=== PATIENT | female | born 1960 ===

== ENCOUNTER 2018-06-19 16:13 | Inpatient (IN) ==
[2018-06-20] MEDS ORDERED: diphenhydrAMINE CAP 25 MG CAPSULE PO PRN (02:20)
[2018-06-20] MEDS ORDERED: ONDANSETRON 4 MG/2 ML VIAL IV PRN (02:20)
[2018-06-20] MEDS ORDERED: NICOTINE 21 MG/24 HR PATCH TRANSDERM PRN (02:20)
[2018-06-20] MEDS ORDERED: BISACODYL 5 MG TABLET PO PRN (02:20)
[2018-06-20] MEDS ORDERED: ACETAMINOPHEN 325 MG TABLET PO PRN (02:20)
[2018-06-20] MEDS ORDERED: MORPHINE 4 MG/1 ML VIAL IV PRN (02:20)
[2018-06-20] MEDS ORDERED: hydrALAZINE 10 MG TABLET PO PRN (02:21)
[2018-06-20] MEDS ORDERED: ALBUTEROL 1.25 MG/3 ML NEB RESP TX PRN (02:21)
[2018-06-20 02:45] LABS: Basophils % 0.4 % (0.0-0.8); Eosinophils # 0.2 10*3/uL (0.0-0.87); Hematocrit 22.9 VOL% (35.7-47.0); Hemoglobin 7.7 GM/DL (12.0-16.0); Immature Granulocytes % 0.4 %; Immature Granulocytes Absolute 0.03 #; Lymphocytes # 2.5 10*3/uL (1.4-4.0); Lymphocytes % 37.5 % (21.3-54.2); Mean Corpuscular HGB Conc 33.6 GM/DL (32-36); Mean Corpuscular Hemoglobin 36 PG (27-34); Mean Corpuscular Volume 105.5 FL (87-102); Mean Platelet Volume 9.5 FL (9.6-12.0); Monocytes # 0.5 10*3/uL (0.11-0.8); Monocytes % 8.1 % (1.7-12.7); Neutrophils # 3.4 10*3/uL (1.4-7.4); Neutrophils % 50.6 % (38.7-73.9); Platelet Count 146 T/CUMM (130-400); Red Blood Count 2.17 MC/CUMM (3.8-5.5); Red Cell Distribution Width 15.3 % (9.3-17.3); White Blood Count 6.7 T/CUMM (4-12)
[2018-06-20 02:50] LABS: ABG Base Excess -4.4 MMOL/L (-2.5-2.5); ABG HCO3 20.8 MMOL/L (20-26); ABG Oxygen Saturation 96.8 % (95-100); ABG PCO2 31.2 MM HG (35-48); ABG PH 7.406 (7.35-7.45); ABG PO2 83.5 MM HG (80-95); ABG TCO2 18.2 MMOL/L (23-27); Allen Test Positive
[2018-06-20] MEDS: ALBUTEROL/IPRATROPIUM 3 ML NEB RESP TX SCH ×5 (02:57→20:01)
[2018-06-20] MEDS ORDERED: ALBUTEROL/IPRATROPIUM 3 ML NEB RESP TX SCH (03:00)
[2018-06-20] MEDS: cefTRIAXone 1,000 MG in SYRINGE 1 EACH IV SCH (03:27)
[2018-06-20] MEDS: AZITHROMYCIN INJ 500 MG in SODIUM CHLORIDE 0.9% 250 ML IV SCH (03:31)
[2018-06-20] MEDS: methylPREDNISolone SOD SUC 125 MG/2 ML VIAL IV SCH ×3 (03:35→22:40)
[2018-06-20 03:36] LABS: Calcium 8.1 MG/DL (8.5-10.1)
[2018-06-20] MEDS: BUDESONIDE 0.5 MG/2 ML NEB RESP TX SCH ×2 (08:07→20:01)
[2018-06-20] MEDS: ARFORMOTEROL 15 MCG/2 ML NEB RESP TX SCH ×2 (08:07→20:01)
[2018-06-20] MEDS: PANTOPRAZOLE 40 MG TABLET PO SCH (11:06)
[2018-06-20] MEDS: SODIUM CHLORIDE 0.9% 1,000 ML IV SCH (16:04)
[2018-06-20 19:52] LABS: Apearance,Urine Slightly Hazy (Clear); Bacteria,Urine Occasional /HPF (Few); Bilirubin,Urine Negative (Negative); Blood, Urine Small mg/dL (Negative); Glucose,Urine (UA) Negative (Negative); Ketones,Urine Negative (Negative); Nitrite,Urine Positive (Negative); Protein,Urine Negative; RBC,Urine 3 /HPF (0-4); Squamous Epithelial Cell,Urine Occasional /HPF (0-10); Urine Color Yellow (Yellow); Urine Specific Gravity 1.011 (1.001-1.035); Urine Urobilinogen < 2.0 EU/DL (0.2-1.0); WBC,Urine 11 /HPF (0-6)
[2018-06-20 20:10] LABS: Microalbum Ur Quant Random 10.6 MG/L (0-20)
[2018-06-21] MEDS: ALBUTEROL/IPRATROPIUM 3 ML NEB RESP TX SCH ×7 (00:30→23:40)
[2018-06-21] MEDS: methylPREDNISolone SOD SUC 125 MG/2 ML VIAL IV SCH (03:33)
[2018-06-21] MEDS: cefTRIAXone 1,000 MG in SYRINGE 1 EACH IV SCH (03:34)
[2018-06-21] MEDS: AZITHROMYCIN INJ 500 MG in SODIUM CHLORIDE 0.9% 250 ML IV SCH (03:38)
[2018-06-21 05:47] LABS: Basophils % 0.1 % (0.0-0.8); Hematocrit 23.3 VOL% (35.7-47.0); Hemoglobin 7.8 GM/DL (12.0-16.0); Immature Granulocytes % 1.5 %; Immature Granulocytes Absolute 0.16 #; Lymphocytes # 0.9 10*3/uL (1.4-4.0); Lymphocytes % 8.7 % (21.3-54.2); Mean Corpuscular HGB Conc 33.5 GM/DL (32-36); Mean Corpuscular Hemoglobin 35 PG (27-34); Mean Corpuscular Volume 104.5 FL (87-102); Mean Platelet Volume 9.6 FL (9.6-12.0); Monocytes # 0.2 10*3/uL (0.11-0.8); Monocytes % 1.6 % (1.7-12.7); Neutrophils # 9.6 10*3/uL (1.4-7.4); Neutrophils % 88.1 % (38.7-73.9); Platelet Count 147 T/CUMM (130-400); Red Blood Count 2.23 MC/CUMM (3.8-5.5); Red Cell Distribution Width 14.6 % (9.3-17.3); White Blood Count 10.8 T/CUMM (4-12)
[2018-06-21 06:04] LABS: Osmolality,Calculated 273.4 MOS/KG (273-304); Potassium 3.7 MMOL/L (3.5-5.1)
[2018-06-21 06:08] LABS: % Iron Saturation 23.8 % (18-50); Ferritin 176.4 ng/ml (8-252)
[2018-06-21] MEDS: BUDESONIDE 0.5 MG/2 ML NEB RESP TX SCH ×2 (06:47→19:09)
[2018-06-21] MEDS: ARFORMOTEROL 15 MCG/2 ML NEB RESP TX SCH ×2 (06:47→19:09)
[2018-06-21] MEDS: SODIUM CHLORIDE 0.9% 1,000 ML IV SCH (07:50)
[2018-06-21 08:28] LABS: Folate 3.9 NG/ML (5.4-24.0)
[2018-06-21] MEDS ORDERED: SODIUM CHLORIDE 0.9% 1,000 ML IV PRN (08:28)
[2018-06-21] MEDS: methylPREDNISolone SOD SUC 40 MG/1 ML VIAL IV SCH ×2 (11:41→16:07)
[2018-06-21] MEDS: FOLIC ACID 1 MG TABLET PO SCH ×2 (11:41→20:17)
[2018-06-21] MEDS: PANTOPRAZOLE 40 MG TABLET PO SCH (11:41)
[2018-06-21] MEDS: CYANOCOBALAMIN 1000 MCG/1 ML VIAL IM SCH (11:41)
[2018-06-21] MEDS: MONTELUKAST 10 MG TABLET PO SCH ×2 (11:41→20:17)
[2018-06-21] MEDS: SODIUM BICARB INJ 50 MEQ in SODIUM CHLORIDE 0.45% 1,000 ML IV SCH (17:33)
[2018-06-21 19:20] LABS: Hematocrit 28.4 VOL% (35.7-47.0)
[2018-06-21 19:21] LABS: Hemoglobin 9.8 GM/DL (12.0-16.0)
[2018-06-22] MEDS: methylPREDNISolone SOD SUC 40 MG/1 ML VIAL IV SCH ×2 (00:15→08:42)
[2018-06-22 01:43] LABS: Basophils % 0.1 % (0.0-0.8); Hematocrit 29.6 VOL% (35.7-47.0); Hemoglobin 10.2 GM/DL (12.0-16.0); Immature Granulocytes % 1.6 %; Immature Granulocytes Absolute 0.22 #; Lymphocytes # 1.4 10*3/uL (1.4-4.0); Lymphocytes % 9.8 % (21.3-54.2); Mean Corpuscular HGB Conc 34.5 GM/DL (32-36); Mean Corpuscular Hemoglobin 33 PG (27-34); Mean Corpuscular Volume 95.5 FL (87-102); Mean Platelet Volume 9.5 FL (9.6-12.0); Monocytes # 0.4 10*3/uL (0.11-0.8); Neutrophils # 12.1 10*3/uL (1.4-7.4); Neutrophils % 85.5 % (38.7-73.9); Platelet Count 149 T/CUMM (130-400); Red Cell Distribution Width 19.9 % (9.3-17.3); White Blood Count 14.1 T/CUMM (4-12)
[2018-06-22 01:51] LABS: Calcium 7.9 MG/DL (8.5-10.1); Osmolality,Calculated 265.7 MOS/KG (273-304); Potassium 3.8 MMOL/L (3.5-5.1)
[2018-06-22] MEDS: cefTRIAXone 1,000 MG in SYRINGE 1 EACH IV SCH (02:35)
[2018-06-22] MEDS: AZITHROMYCIN INJ 500 MG in SODIUM CHLORIDE 0.9% 250 ML IV SCH (02:45)
[2018-06-22] MEDS: ALBUTEROL/IPRATROPIUM 3 ML NEB RESP TX SCH ×3 (03:30→11:46)
[2018-06-22] MEDS: SODIUM BICARB INJ 50 MEQ in SODIUM CHLORIDE 0.45% 1,000 ML IV SCH (06:48)
[2018-06-22] MEDS: BUDESONIDE 0.5 MG/2 ML NEB RESP TX SCH (07:15)
[2018-06-22] MEDS: ARFORMOTEROL 15 MCG/2 ML NEB RESP TX SCH (07:30)
[2018-06-22] MEDS: PANTOPRAZOLE 40 MG TABLET PO SCH (08:42)
[2018-06-22] MEDS: FOLIC ACID 1 MG TABLET PO SCH (08:42)
[2018-06-22] MEDS: MONTELUKAST 10 MG TABLET PO SCH (08:42)
[2018-06-22] MEDS: CYANOCOBALAMIN 1000 MCG/1 ML VIAL IM SCH (08:43)
[2018-06-22 09:04] LABS: Free T4 (Free Thyroxine) 0.99 NG/DL (0.76-1.46)
[2018-06-22] MEDS ORDERED: amLODIPine 10 MG TABLET PO SCH (11:00)
[2018-06-22 12:31] VITALS: BP 188/75
== END 2018-06-22 13:57 | disposition home or self-care (01) | DRG 191 ==
LOC: N.2E → SUATTDRO 18:11
PROVIDERS: ADMIT Internal Medicine; ATTEND Internal Medicine